=== PATIENT | female | born 1955 | race Caucasian/White ===

== ENCOUNTER 2024-10-28 13:46 | Emergency (ER) | payer MEDICARE ==
--- NOTE | 2024-10-28 14:20 | ED ---
General Adult HPI <Hernan Berrios - Last Filed: 10/28/24 15:11> - General Source: patient, RN notes reviewed Mode of arrival: ambulatory Limitations: no limitations <Liam Avilez - Last Filed: 10/29/24 06:33> - General Chief complaint: Fall Stated complaint: fell off ladder L wrist injury Time Seen by Provider: 10/28/24 13:50 - History of Present Illness Initial comments: 69 year old female presents to the ED for evaluation of L wrist swelling and pain. She reports that she was on a ladder coming down near the last step and while falling backwards and trying to catch herself she injured her left wrist. She has pain moving her left hand and fingers as well. She denies any other injuries. (Liam Avilez) - Related Data Allergies Allergy/AdvReac Type Severity Reaction Status Date / Time No Known Allergies Allergy Verified 10/28/24 13:51 Review of Systems ROS Other: All systems not noted in ROS Statement are negative. <Hernan Berrios - Last Filed: 10/28/24 15:11> ROS Other: All systems not noted in ROS Statement are negative. <Liam Avilez - Last Filed: 10/29/24 06:33> ROS Statement: Those systems with pertinent positive or pertinent negative responses have been documented in the HPI. Past Medical History Past Medical History: No Reported History History of Any Multi-Drug Resistant Organisms: None Reported Past Surgical History: Joint Replacement, Orthopedic Surgery Smoking Status: Never smoker Past Alcohol Use History: Rare Past Drug Use History: Marijuana <Liam Avilez - Last Filed: 10/29/24 06:33> General Exam Limitations: no limitations General appearance: alert, in no apparent distress Head exam: Present: atraumatic, normocephalic, normal inspection Neck exam: Present: normal inspection, full ROM. Absent: tenderness, meningismus, lymphadenopathy Respiratory exam: Present: normal lung sounds bilaterally. Absent: respiratory distress, wheezes, rales, rhonchi, stridor Cardiovascular Exam: Present: regular rate, normal rhythm, normal heart sounds. Absent: systolic murmur, diastolic murmur, rubs, gallop, clicks Left Hand Wrist exam: Present: tenderness, swelling. Absent: normal inspection (obvious deformity on wrist ) Vascular: Present: normal capillary refill. Absent: vascular compromise <Liam Avilez M - Last Filed: 10/29/24 06:33> Course Vital Signs 10/28/24 10/28/24 10/28/24 13:48 14:38 14:46 Temperature 98.3 F 98.0 F Pulse Rate 61 64 Respiratory 18 20 18 Rate Blood Pressure 204/80 180/83 180/82 O2 Sat by Pulse 98 99 100 Oximetry 10/28/24 10/28/24 10/28/24 15:04 15:05 15:10 Temperature Pulse Rate 62 54 L 52 L Respiratory 17 17 18 Rate Blood Pressure 171/87 166/82 162/78 O2 Sat by Pulse 99 99 99 Oximetry 10/28/24 10/28/24 10/28/24 15:15 15:30 15:45 Temperature Pulse Rate 53 L 56 L 57 L Respiratory 16 18 16 Rate Blood Pressure 162/94 162/78 162/89 O2 Sat by Pulse 100 99 100 Oximetry 10/28/24 10/28/24 10/28/24 16:00 16:05 16:15 Temperature 98.4 F Pulse Rate 62 62 56 L Respiratory 20 17 20 Rate Blood Pressure 167/88 168/90 160/80 O2 Sat by Pulse 98 98 99 Oximetry Procedures - Procedural Sedation *Procedural Sedation Start Time: 15:04 *Procedural Sedation Stop Time: 15:05 *Risks,benefits, and alternative therapies discussed?: Yes *Patient indicates understanding of risk/benefit discussion?: Yes *Indications: fracture/dislocation reduction *Previous Adverse Reaction to Anesthesia/Sedation?: No * Testing Complete?: No Reason Test Not Complete:: Emergent Situation *ASA Class: II *Mallampati Airway Score: 2 Preparation: co founder and cto applied, pulse oximeter, capnometry used, supplemental O2 applied IV Propofol Dose (mgs): 100 Complications: none Patient Tolerated Procedure: well <Hernan Berrios - Last Filed: 10/28/24 15:11> - Orthopedic Fracture Reduction Fracture #1 Consent Obtained: written consent Side: left Fracture Reduction Location: radius Analgesia: procedural sedation Technique: direct manipulation Post Reduction X-rays Demonstrate: anatomical reduction Post-Reduction Neuro Exam: intact Post-Reduction Vascular Exam: intact Splint Applied: Yes Patient Tolerated Procedure: well - Orthopedic Splinting/Casting Injury #1 Side: left Upper Extremity Injury Location: short arm, wrist Upper Extremity Immobilizer: sugar tong splint, synthetic pre-padded splint <Liam Avilez - Last Filed: 10/29/24 06:33> - Orthopedic Splinting/Casting Injury #1 Additional Comments: Neurovascular intact before and after procedure (Liam Avilez) Medical Decision Making <Liam Avilez - Last Filed: 10/29/24 06:33> - Medical Decision Making Was pt. sent in by a medical professional or institution ([facility], [facility], urgent care, hospital, or [place] [facility] facility...) When possible be specific @ -No Did you speak to anyone other than the patient for history (EMS, parent, family, police, friend...)? What history was obtained from this source @ -No Did you review nursing and triage notes (agree or disagree)? Why? @ -I reviewed and agree with nursing and triage notes Were old charts reviewed (outside hosp., previous admission, EMS record, old EKG, old radiological studies, urgent care reports/EKG's, [place] [facility] facility records)? Report findings @ -No old charts were reviewed Differential Diagnosis (chest pain, altered mental status, abdominal pain women, abdominal pain men, vaginal bleeding, weakness, fever, dyspnea, syncope, headache, dizziness, GI bleed, back pain, seizure, CVA, palpatations, mental health, musculoskeletal)? @ -Fall, wrist fracture, wrist sprain, contusion EKG interpreted by me (3pts min.). @ -None X-rays interpreted by me (1pt min.). @ -X-ray left wrist showing displaced distal radius fracture X-ray left wrist limited showing reduction, adequate alignment. CT interpreted by me (1pt min.). @ -None done U/S interpreted by me (1pt. min.). @ -None done What testing was considered but not performed or refused? (CT, X-rays, U/S, labs)? Why? @ -None What meds were considered but not given or refused? Why? @ -None Did you discuss the management of the patient with other professionals (professionals i.e. [facility], [facility], lab, RT, psych nurse, clinical social worker, soyfreeze operator, teacher, administrative officer, shoe parts caser)? Give summary @ -No Was smoking cessation discussed for >3mins.? @ -No Was critical care preformed (if so, how long)? @ -No Were there social determinants of health that impacted care today? How? (Homelessness, low income, unemployed, alcoholism, drug addiction, transportation, low edu. Level, literacy, decrease access to med. care, fpc, rehab)? @ -No Was there de-escalation of care discussed even if they declined (Discuss DNR or withdrawal of care, Hospice)? DNR status @ -No What co-morbidities impacted this encounter? (DM, HTN, Smoking, COPD, CAD, Cancer, CVA, ARF, Chemo, Hep., AIDS, mental health diagnosis, sleep apnea, morbid obesity)? @ -None Was patient admitted / discharged? Hospital course, mention meds given and route, prescriptions, significant lab abnormalities, going to OR and other pertinent info. @ -Discharge patient has distal radius fracture patient was splinted after Sedation and reduction patient will follow-up with orthopedics pain control, neurovascular intact Undiagnosed new problem with uncertain prognosis? @ -No Drug Therapy requiring intensive monitoring for toxicity (Heparin, Nitro, Insulin, Cardizem)? @ -No Were any procedures done? @ -No Diagnosis/symptom? @ -Distal radius fracture left Acute, or Chronic, or Acute on Chronic? @ -Acute Uncomplicated (without systemic symptoms) or Complicated (systemic symptoms)? @ -Uncomplicated Side effects of treatment? @ -No Exacerbation, Progression, or Severe Exacerbation? @ -No Poses a threat to life or bodily function? How? (Chest pain, [place], [place], pneumonia, PE, COPD, DKA, ARF, appy, cholecystitis, CVA, Diverticulitis, Homicidal, [place] icidal, threat to staff... and all critical care pts) @ -No (Liam Avilez) Disposition <Hernan Berrios - Last Filed: 10/28/24 15:11> Is patient prescribed a controlled substance at d/c from ED?: No Time of Disposition: 16:01 <Liam Avilez - Last Filed: 10/29/24 06:33> Clinical Impression: Fall, Distal radius fracture, left Disposition: HOME SELF-CARE Condition: Stable Instructions (If sedation given, give patient instructions): Arm Fracture in Adults (ED), Moderate Sedation (ED) Additional Instructions: Please return to the Emergency Department if symptoms worsen or any other concerns. Referrals: Walter Alex MD [Primary Care Provider] - 1-2 days Alfa Mendez DO [Doctor of Osteopathic Medicine] - 1-2 days
[2024-10-28] MEDS: HYDROmorphone 0.5 MG/0.5 ML SYRINGE IVP STA (14:28)
[2024-10-28] MEDS: SODIUM CHLORIDE 0.9% 1,000 ML IV ONE (14:45)
--- NOTE | 2024-10-28 14:58 | XR ---
EXAMINATION TYPE: XR wrist complete LT DATE OF EXAM: 10/28/2024 2:23 PM COMPARISON: None CLINICAL INDICATION: Female, 69 years old with history of pain; PHH, pain TECHNIQUE: XR wrist complete LT; examined in the Frontal, navicular, lateral, and oblique. FINDINGS: Acute comminuted distal radius intra-articular fracture with complete displacement posterio rly. There is intra-articular extension of this fracture cannot be present Chronic old appearing ulna r styloid fracture process fracture. IMPRESSION: 1. Acute comminuted distal radius fracture with dorsal angulation and intra-articular extension. 2. Chronic appearing fracture of the ulnar styloid process. [facility], , 10/28/2024 2:56 PM
[2024-10-28] MEDS: PROPOFOL 10 MG/ML 20 ML VIAL IV ONE ×2 (15:03)
--- NOTE | 2024-10-28 15:24 | XR ---
EXAMINATION TYPE: XR wrist limited LT DATE OF EXAM: 10/28/2024 3:17 PM COMPARISON: None CLINICAL INDICATION: Female, 69 years old with history of Postreduction; PHH, pain TECHNIQUE: XR wrist limited LT; examined in the Frontal, navicular, lateral, and oblique. FINDINGS/IMPRESSION: Post reduction films with cast in place. There is improved anatomic alignment of the distal right rad ius fracture with persistent displacement and intra-articular fragments. Chronic fracture of the radi al ulnar styloid process. [facility], , 10/28/2024 3:22 PM
[2024-10-28] MEDS: ACET/COD 300 MG/30 MG STARTER PACK 6 TAB BTL PO STA (16:09)
[2024-10-28 16:24] VITALS: BP 160/80; PULSE 56; RESP 20; TEMP 98.4
== END 2024-10-28 16:17 | disposition home or self-care (01) ==
LOC: EC 13:46
DX: S52.502A Unspecified fracture of the lower end of left radius, initial encounter for closed fracture (principal); W11.XXXA Fall on and from ladder, initial encounter
CPT/HCPCS: 99284; 25605; 96374; 96361; 73100; 73110; J2704; J1171